=== PATIENT | male | born 1995 | race Caucasian/White ===

== ENCOUNTER 2017-07-02 00:40 | Emergency (ER) | payer OTHER ==
[~2017-07-02] VITALS: Ht 172.7 cm; Wt 95.7 kg
[2017-07-02 00:52] VITALS: BP 144/80; Ht 172.7 cm; Wt 95.7 kg
== END 2017-07-02 04:11 | disposition home or self-care (01) ==
LOC: ED 00:40
DX: J06.9 Acute upper respiratory infection, unspecified (principal)

== ENCOUNTER 2018-05-07 06:01 | Emergency (ER) | payer OTHER ==
[~2018-05-07] VITALS: Ht 175.3 cm; Wt 88.2 kg
[2018-05-07 07:02] LABS: BASOPHIL % 0.3 % (0-2); PLATELET COUNT 156 x10^3mcL (130-400); RED CELL DISTRIBUTION WIDTH 12.1 % (11.5-14.5)
[2018-05-07 07:13] LABS: CALCIUM 8.7 mg/dL (8.5-10.1); CARBON DIOXIDE 26.8 mmol/L (21-32); CHLORIDE SERUM 99 mmol/L (98-107); CREATININE SERUM 0.9 mg/dL (0.7-1.3); GFR1 > 60 mL/min; GLUCOSE SERUM 101 mg/dL (74-106); POTASSIUM SERUM 3.8 mmol/L (3.5-5.1); SODIUM SERUM 133 mmol/L (136-145)
[2018-05-07 07:18] LABS: ALKALINE PHOSPHATASE 153 U/L (46-116); ALT/SGPT 109 U/L (16-63); AST/SGOT 63 U/L (15-37); BILIRUBIN TOTAL 1.63 mg/dL (0.20-1.00)
[2018-05-07] MEDS ORDERED: AMOXICILLIN500 M1 PO (07:45)
[2018-05-07 08:56] LABS: microscopic required? YES; urine erythrocyte NEGATIVE (NEGATIVE)
[2018-05-07 10:30] VITALS: BP 124/80
== END 2018-05-07 10:30 | disposition home or self-care (01) ==
LOC: ED 06:01
PROVIDERS: Emergency Medicine
DX: E86.0 Dehydration (principal); J03.90 Acute tonsillitis, unspecified; R79.89 Other specified abnormal findings of blood chemistry
CPT/HCPCS: 86308; J2405; J7030; Q0092

== ENCOUNTER 2018-05-14 13:03 | Inpatient (IN) | payer OTHER ==
[~2018-05-14] VITALS: Ht 175.3 cm; Wt 85.3 kg
[~2018-05-14 13:03] MED LIST: AMOXICILLIN500 M1 PO
[2018-05-14 13:09] VITALS: Ht 175.3 cm; Wt 85.3 kg
[2018-05-14 15:28] LABS: BASOPHIL % 0.3 % (0-2); PLATELET COUNT 193 x10^3mcL (130-400); RED CELL DISTRIBUTION WIDTH 12.4 % (11.5-14.5)
[2018-05-14 15:37] LABS: CALCIUM 9.1 mg/dL (8.5-10.1); CARBON DIOXIDE 24.7 mmol/L (21-32); CHLORIDE SERUM 98 mmol/L (98-107); CREATININE SERUM 0.9 mg/dL (0.7-1.3); GFR1 > 60 mL/min; GLUCOSE SERUM 111 mg/dL (74-106); POTASSIUM SERUM 3.4 mmol/L (3.5-5.1); SODIUM SERUM 134 mmol/L (136-145)
[2018-05-14 15:42] LABS: ALBUMIN 3.3 g/dL (3.4-5.0); ALKALINE PHOSPHATASE 209 U/L (46-116); ALT/SGPT 188 U/L (16-63); AST/SGOT 102 U/L (15-37); BILIRUBIN TOTAL 1.5 mg/dL (0.20-1.00)
[2018-05-14 16:20] LABS: UA SPECIFIC GRAVITY <=1.005 (1.005-1.035); microscopic required? YES; urine erythrocyte TRACE (NEGATIVE)
[2018-05-14 17:33] LABS: MAGNESIUM 2.5 mg/dL (1.8-2.4); PHOSPHOROUS 2.8 mg/dL (2.5-4.9)
[2018-05-14 17:36] LABS: CHOLESTEROL/HDL RATIO 12.2
[2018-05-14 17:38] LABS: AMPHETAMINE QUAL UR NONE DETECTED (See below)
[2018-05-14 17:39] VITALS: BP 96/51
[2018-05-14 17:40] LABS: T3 TOTAL 0.95 ng/mL
[2018-05-14 17:45] LABS: FREE T4 1.42 ng/dL (0.76-1.46); FREE THYROXINE INDEX 4.2 ug/dL (1.4-4.5); T4(THYROXINE) 10.7 ug/dL (4.7-13.3)
[2018-05-14 20:45] VITALS: BP 106/48
[2018-05-15 00:56] VITALS: BP 134/49
[2018-05-15 05:14] VITALS: BP 108/62
[2018-05-15 06:57] LABS: BASOPHIL % 0 % (0-2); PLATELET COUNT 166 x10^3mcL (130-400); RED CELL DISTRIBUTION WIDTH 12.6 % (11.5-14.5)
[2018-05-15 07:29] LABS: C REACTIVE PROTEIN 21.5 mg/dL (<=0.9)
[2018-05-15 07:31] LABS: ALBUMIN 2.9 g/dL (3.4-5.0); ALKALINE PHOSPHATASE 223 U/L (46-116); ALT/SGPT 313 U/L (16-63); AST/SGOT 192 U/L (15-37); CALCIUM 8.6 mg/dL (8.5-10.1); CARBON DIOXIDE 24.4 mmol/L (21-32); CHLORIDE SERUM 111 mmol/L (98-107); CREATININE SERUM 0.8 mg/dL (0.7-1.3); GFR1 > 60 mL/min; GLUCOSE SERUM 148 mg/dL (74-106); MAGNESIUM 2.6 mg/dL (1.8-2.4); PHOSPHOROUS 3.4 mg/dL (2.5-4.9); POTASSIUM SERUM 4.3 mmol/L (3.5-5.1); SODIUM SERUM 143 mmol/L (136-145); TOTAL PROTEIN, SERUM 7.1 g/dL (6.4-8.2)
[2018-05-15 08:17] LABS: BILIRUBIN DIRECT 0.58 mg/dL (0.0-0.2); BILIRUBIN TOTAL 1.14 mg/dL (0.20-1.00)
[2018-05-15 08:29] VITALS: BP 113/67
[2018-05-15 08:29] LABS: ERYTHROCYTE SED RATE 92 mm/hr (0-15)
[2018-05-15 14:05] VITALS: BP 117/62
[2018-05-15 16:30] VITALS: BP 119/69
[2018-05-15 20:19] VITALS: BP 106/62
[2018-05-16 05:03] VITALS: BP 120/68
[2018-05-16 06:51] LABS: ALKALINE PHOSPHATASE 208 U/L (46-116); ALT/SGPT 399 U/L (16-63); AST/SGOT 158 U/L (15-37); BILIRUBIN DIRECT 0.28 mg/dL (0.0-0.2); BILIRUBIN TOTAL 0.66 mg/dL (0.20-1.00); CALCIUM 8.7 mg/dL (8.5-10.1); CARBON DIOXIDE 22.9 mmol/L (21-32); CHLORIDE SERUM 110 mmol/L (98-107); CREATININE SERUM 0.6 mg/dL (0.7-1.3); GFR1 > 60 mL/min; GLUCOSE SERUM 132 mg/dL (74-106); MAGNESIUM 2.3 mg/dL (1.8-2.4); PHOSPHOROUS 4.2 mg/dL (2.5-4.9); POTASSIUM SERUM 4.1 mmol/L (3.5-5.1); SODIUM SERUM 145 mmol/L (136-145)
[2018-05-16 07:01] LABS: ALBUMIN 2.8 g/dL (3.4-5.0); C REACTIVE PROTEIN 12.1 mg/dL (<=0.9)
[2018-05-16 08:08] VITALS: BP 112/62
[2018-05-16 09:00] LABS: PLATELET COUNT 221 x10^3mcL (130-400); RED CELL DISTRIBUTION WIDTH 12.7 % (11.5-14.5)
[2018-05-16 09:53] LABS: ERYTHROCYTE SED RATE 63 mm/hr (0-15)
[2018-05-16 12:13] LABS: ATYPICAL LYMPH 2 %; BAND NEUTROPHIL 0 % (0-10); BASOPHIL 0 % (0-2); MONOCYTE 4 % (0-7); SEGMENTED NEUTROPHILS 93 % (37-75)
[2018-05-16 12:15] LABS: PLATELET MORPHOLOGY PLATELETS DECREASED; rbc morphology (normal/abnorm) ABNORMAL (NORMAL)
[2018-05-16 12:22] VITALS: BP 98/55
[2018-05-16] MEDS ORDERED: PREDNISONE20 MG PO (14:34)
[2018-05-16 15:02] VITALS: BP 98/55
== END 2018-05-16 15:29 | disposition home or self-care (01) | DRG 346 ==
LOC: ED 13:03 → DU 16:24 → MU 16:24 → DU 17:01
PROVIDERS: Emergency Medicine; Internal Medicine
DX: M30.0 Polyarteritis nodosa (principal); D68.69 Other thrombophilia; R65.10 Systemic inflammatory response syndrome (SIRS) of non-infectious origin without acute organ dysfunction; E87.1 Hypo-osmolality and hyponatremia; E83.41 Hypermagnesemia; E53.0 Riboflavin deficiency; E87.6 Hypokalemia; E78.5 Hyperlipidemia, unspecified; R74.0 Nonspecific elevation of levels of transaminase and lactic acid dehydrogenase [LDH]; D64.9 Anemia, unspecified; Z68.27 Body mass index [BMI] 27.0-27.9, adult
CPT/HCPCS: 84439; J0696; J1885; J2920; J7030; J7512